=== PATIENT | male | born 1990 | race Native Hawaiian/Other Pacific Islander ===

== ENCOUNTER 2017-01-22 12:40 | Emergency (ER) | payer OTHER ==
[2017-01-22 12:55] VITALS: BP 125/63; PULSE 72; RESP 18; TEMP 98; O2SAT 99
--- NOTE | 2017-01-22 13:26 | ED PDOC ---
HPI: CCC, URI, Sore Throat Time Seen by Provider: 01/22/17 13:08 Chief Complaint (Nursing): ENT Problem History Per: Patient History/Exam Limitations: no limitations Onset/Duration Of Symptoms: Days (2 days) Current Symptoms Are (Timing): Still Present Location Of Pain: Throat Associated Symptoms: Neck Pain. denies: Fever, Nausea, Vomiting, Diarrhea Ear Symptoms: Bilateral: None Additional Complaint(s): 01/22/2017 Dali Vega is a 26 y/o male, who presents to the ED complaining of left sided neck pain for the past two days. Patient reports he swallowed a fish bone when the pain began. He states eating food yesterday and felt that the throat discomfort , but today the pain persisted. Patient denies any cough, fever, chills, abdominal pain, shortness of breath, or other complaints. Past Medical History Reviewed: Historical Data, Nursing Documentation, Vital Signs Vital Signs: Last Vital Signs Temp 98 F 01/22/17 12:52 Pulse 72 01/22/17 12:52 Resp 18 01/22/17 12:52 BP 125/63 01/22/17 12:52 Pulse Ox 99 01/22/17 13:31 - Family History Family History: States: No Known Family Hx - Home Medications Home Medications: Ambulatory Orders Medication Instructions Recorded Ibuprofen [Motrin] 600 mg PO Q8 PRN #12 tab 01/22/17 - Allergies Allergies/Adverse Reactions: Allergies Allergy/AdvReac Type Severity Reaction Status Date / Time Cephalosporins Allergy RASH Verified 01/22/17 12:51 lactose Allergy VOMITING Verified 01/22/17 12:51 Penicillins Allergy SWELLING Verified 01/22/17 12:51 Review of Systems Constitutional: Negative for: Fever ENT: Positive for: Throat Pain Cardiovascular: Negative for: Chest Pain Respiratory: Negative for: Cough, Shortness of Breath Gastrointestinal: Negative for: Abdominal Pain Neurological: Negative for: Headache Physical Exam - Reviewed Nursing Documentation Reviewed: Yes Vital Signs Reviewed: Yes - Physical Exam Appears: Positive for: Well, Non-toxic, No Acute Distress Head Exam: Positive for: ATRAUMATIC, NORMAL INSPECTION, NORMOCEPHALIC Skin: Positive for: Normal Color, Warm, DRY ENT: Positive for: Normal ENT Inspection. Negative for: Pharyngeal Erythema, Tonsillar Exudate, Tonsillar Swelling Neurologic/Psych: Positive for: Alert, Oriented - ECG O2 Sat by Pulse Oximetry: 99 (room air) Pulse Ox Interpretation: Normal Medical Decision Making Medical Decision Makin01/22/2017 Impression: 26 y/o with left sided neck pain after swallowing fish bone. clear on physical exam. Plan: -- Neck x-ray -- Lidocaine 2% -- Reassess and disposition Progress Notes: Scribe Attestation: Documented by Niya Boyd, acting as a scribe for Whitney Crooks PA-C Provider Scribe Attestation: All medical record entries made by the Scribe were at my direction and personally dictated by me. I have reviewed the chart and agree that the record accurately reflects my personal performance of the history, physical exam, medical decision making, and the department course for this patient. I have also personally directed, reviewed, and agree with the discharge instructions and disposition. Disposition - Clinical Impression Clinical Impression: Foreign body sensation in throat - Patient ED Disposition Is Patient to be Admitted: No - Disposition Referrals: Kevin Méndez MD [Staff Provider] - Disposition: Routine/Home Disposition Time: 14:23 Condition: FAIR Prescriptions: Ibuprofen [Motrin] 600 mg PO Q8 PRN #12 tab PRN Reason: Pain, Moderate (4-7) Instructions: Foreign Body in Pharynx (ED) Forms: [facility] (Djiboutian)
--- NOTE | 2017-01-22 14:23 | RAD ---
PROCEDURE: Radiographs of the neck (soft tissue). HISTORY: r/o foreign body COMPARISON: None. TECHNIQUE: Frontal and Lateral Radiographs of the neck, optimized for soft tissue visualization. FINDINGS: SOFT TISSUES: There is no prevertebral soft tissue thickening. No radiopaque foreign body seen. The nasopharyngeal and oropharyngeal airways, hypopharynx and visualized trachea are normal in appearance. The epiglottis is normal. CERVICAL SPINE: Grossly unremarkable. OTHER FINDINGS: None. IMPRESSION: No prevertebral soft tissue thickening or radiopaque foreign body P
== END 2017-01-22 14:54 | disposition home or self-care (01) ==
LOC: H.ER 12:40
DX: R09.89 Other specified symptoms and signs involving the circulatory and respiratory systems (principal)

== ENCOUNTER 2017-06-30 00:43 | Emergency (ER) | payer OTHER, BC ==
[2017-06-30 01:01] VITALS: TEMP 97.9; O2SAT 94
--- NOTE | 2017-06-30 01:47 | ED PDOC ---
HPI: Chest Pain Time Seen by Provider: 06/30/17 00:57 Chief Complaint (Nursing): Chest Pain Chief Complaint (Provider): Chest Pain History Per: Patient History/Exam Limitations: no limitations Onset/Duration Of Symptoms: Days (x5 days) Current Symptoms Are (Timing): Still Present Additional Complaint(s): 27 y/o male presents to the ED complaining of chest pain x 5days associated with cough, was there since weeks. Reports that when he coughs, he feels chest pain and when he takes deep breath and expands his ribcage feel chest pain as well. Pain is non exertional and non-radiating. Patient reports that he recently finished azithromycin and tamiflu. Denies any further medical complaints. Past Medical History Reviewed: Historical Data, Nursing Documentation, Vital Signs Vital Signs: Last Vital Signs Temp 97.9 F 06/30/17 00:57 Pulse 73 06/30/17 01:49 Resp 14 06/30/17 01:49 BP 139/81 06/30/17 01:49 Pulse Ox 94 L 06/30/17 01:53 - Medical History PMH: No Chronic Diseases - Surgical History Surgical History: No Surg Hx - Family History Family History: States: Unknown Family Hx - Home Medications Home Medications: Ambulatory Orders Medication Instructions Recorded Ibuprofen [Motrin] 600 mg PO Q8 PRN #12 tab 01/22/17 Ibuprofen [Motrin Tab] 600 mg PO Q6 #30 tab 06/30/17 - Allergies Allergies/Adverse Reactions: Allergies Allergy/AdvReac Type Severity Reaction Status Date / Time Cephalosporins Allergy RASH Verified 06/30/17 00:56 lactose Allergy VOMITING Verified 06/30/17 00:56 Penicillins Allergy SWELLING Verified 06/30/17 00:56 Review of Systems ROS Statement: Except As Marked, All Systems Reviewed And Found Negative (As per HPI, otherwise negative) Cardiovascular: Positive for: Chest Pain Respiratory: Positive for: Cough Physical Exam - Reviewed Nursing Documentation Reviewed: Yes Vital Signs Reviewed: Yes - Physical Exam Appears: Positive for: Well, Non-toxic, No Acute Distress Head Exam: Positive for: ATRAUMATIC, NORMAL INSPECTION, NORMOCEPHALIC Skin: Positive for: Normal Color, Warm, Dry Eye Exam: Positive for: EOMI, Normal appearance, PERRL ENT: Positive for: Normal ENT Inspection Neck: Positive for: Normal, Painless ROM, Supple Cardiovascular/Chest: Positive for: Regular Rate, Rhythm, Other (Tenderness to chest wall bilaterally). Negative for: Murmur Respiratory: Positive for: Normal Breath Sounds. Negative for: Accessory Muscle Use, Respiratory Distress Gastrointestinal/Abdominal: Positive for: Normal Exam, Bowel Sounds, Soft. Negative for: Tenderness Back: Positive for: Normal Inspection Extremity: Positive for: Normal ROM. Negative for: Deformity Neurologic/Psych: Positive for: Alert, Oriented (x3) - ECG O2 Sat by Pulse Oximetry: 94 (RA) Pulse Ox Interpretation: Normal Medical Decision Making Medical Decision Making: Time: 01:04 Initial Impression: Musculoskeletal chest pain Plan: Chest x-ray Ibuprofen 600mg PO 230AM Xray as read by me is negative. Patient feeling better, stable for outpatient followup. Return precautions discussed. Scribe Attestation: Documented by Libby Crooks acting as a scribe for Marlon Bell MD. Scribe Attestation: All medical record entries made by the Scribe were at my direction and personally dictated by me. I have reviewed the chart and agree that the record accurately reflects my personal performance of the history, physical exam, medical decision making, and the department course for this patient. I have also personally directed, reviewed, and agree with the discharge instructions and disposition. Disposition - Clinical Impression Clinical Impression: Chest wall pain - Disposition Referrals: Luis Olivas [Outside] Disposition: Routine/Home Disposition Time: 02:33 Condition: IMPROVED Prescriptions: Ibuprofen [Motrin Tab] 600 mg PO Q6 #30 tab Instructions: Chest Pain That Is Not Caused by the Heart (DC) Forms: [facility] (Slovak)
[2017-06-30 01:49] VITALS: BP 139/81; PULSE 73; RESP 14
--- NOTE | 2017-06-30 07:57 | RAD ---
HISTORY: cough, cp COMPARISON: No prior. TECHNIQUE: Chest PA and lateral FINDINGS: LUNGS: No active pulmonary disease. PLEURA: No significant pleural effusion identified. No pneumothorax apparent. CARDIOVASCULAR: Normal. OSSEOUS STRUCTURES: No significant abnormalities. VISUALIZED UPPER ABDOMEN: Normal. OTHER FINDINGS: None. IMPRESSION: No active disease.
== END 2017-06-30 02:50 | disposition home or self-care (01) ==
LOC: H.ER 00:43
DX: R07.89 Other chest pain (principal); Z88.0 Allergy status to penicillin

== ENCOUNTER 2017-09-20 02:24 | Emergency (ER) | payer BC, OTHER ==
[2017-09-20 02:46] VITALS: BMI 23.8
--- NOTE | 2017-09-20 03:00 | ED PDOC ---
HPI: General Adult Time Seen by Provider: 09/20/17 02:32 Chief Complaint (Nursing): ENT Problem Chief Complaint (Provider): ENT Problem History Per: Patient History/Exam Limitations: no limitations Onset/Duration Of Symptoms: Hrs (x2.5 hours) Have you had recent travel within the past 21 days to any of the following countries: [place], [place], [place] or [place]?: No Current Symptoms Are (Timing): Still Present Additional Complaint(s): 27 year old male presents to ED with complaints of a foreign body sensation in throat x2.5 hours and has no past medical history. Patient states he ate a flank steak at time of onset and believes there is a retained piece of steak in his throat on the right side. (-) trouble swallowing, issues handling his own secretions, or difficulty ingesting fluids. Patient notes that this has happened many times in the past. Chart review shows a similar episode in January 2017. Of note, patient is currently on Clarithromycin for a sinus infection. PCP: Kateryna Past Medical History Reviewed: Historical Data, Nursing Documentation, Vital Signs Vital Signs: Last Vital Signs Temp 98.3 F 09/20/17 04:55 Pulse 82 09/20/17 04:55 Resp 18 09/20/17 04:55 BP 118/82 09/20/17 04:55 Pulse Ox 98 09/20/17 04:55 - Medical History PMH: No Chronic Diseases - Surgical History Surgical History: No Surg Hx - Family History Family History: States: Unknown Family Hx - Living Arrangements Living Arrangements: With Friends/Others - Home Medications Home Medications: Ambulatory Orders Medication Instructions Recorded Ibuprofen [Motrin] 600 mg PO Q8 PRN #12 tab 01/22/17 Ibuprofen [Motrin Tab] 600 mg PO Q6 #30 tab 06/30/17 - Allergies Allergies/Adverse Reactions: Allergies Allergy/AdvReac Type Severity Reaction Status Date / Time Cephalosporins Allergy RASH Verified 06/30/17 00:56 lactose Allergy VOMITING Verified 06/30/17 00:56 Penicillins Allergy SWELLING Verified 06/30/17 00:56 Review of Systems ROS Statement: Except As Marked, All Systems Reviewed And Found Negative ENT: Positive for: Other ((+) foreign body sensation in throat. (-) trouble swallowing, issues handling his own secretions, issues ingesting fluids). Negative for: Throat Pain Physical Exam - Reviewed Nursing Documentation Reviewed: Yes Vital Signs Reviewed: Yes - Physical Exam Appears: Positive for: Non-toxic, No Acute Distress Skin: Positive for: Normal Color, Warm, Dry Eye Exam: Positive for: Normal appearance ENT: Positive for: Normal ENT Inspection, Pharynx Is (clear) Cardiovascular/Chest: Positive for: Regular Rate, Rhythm. Negative for: Murmur Respiratory: Positive for: Normal Breath Sounds. Negative for: Respiratory Distress Gastrointestinal/Abdominal: Positive for: Normal Exam, Soft. Negative for: Tenderness Neurologic/Psych: Positive for: Alert, Oriented. Negative for: Motor/Sensory Deficits - ECG O2 Sat by Pulse Oximetry: 97 (RA) Pulse Ox Interpretation: Normal Medical Decision Making Medical Decision Makin Initial impression: foreign body sensation in throat Initial plan: Patient offered CT to further exclude possibility of retained food bolus, to which patient is amenable. * CT NECK SOFT TISSUE 0424 CT FINDINGS: NASOPHARYNX: No acute abnormality of the adenoidal/nasopharyngeal tonsils identified. ORAL CAVITY: No acute abnormality of the tongue base identified. OROPHARYNX: No acute abnormality of the palatine tonsils identified. HYPOPHARYNX: No acute abnormality of the pyriform sinuses visualized. LARYNX: No acute abnormality of the vocal cords identified. No acute abnormality of the epiglottis identified. TRACHEA: Visualized portions of the trachea appear patent. RETROPHARYNGEAL SPACE: No evidence of prevertebral/retropharyngeal fluid or fluid collection. SUBMANDIBULAR/PAROTID GLANDS: No acute abnormality of the parotid or submandibular glands identified. THYROID: No acute abnormality of the thyroid gland identified. BONES/JOINTS: No acute fractures or other acute bony abnormality noted. SOFT TISSUES: No definite CT evidence of cellulitis on this unenhanced exam. No evidence of soft tissue gas. VASCULATURE: No acute abnormality of the major neck vessels seen. LYMPH NODES: No evidence of diffuse pathologic lymphadenopathy. SINUSES: Small mucus retention cysts in the right maxillary and left posterior ethmoid sinuses. ESOPHAGUS: No acute abnormality of the visualized portions of the upper esophagus. No CT evidence of esophageal perforation. No intraesophageal radioopaque foreign bodies. LUNG APICES: Lung apices appear clear. TRACHEA: Visualized portions of the trachea appear patent. IMPRESSION: - No evidence of significant acute process on this unenhanced exam. - See above for remaining findings. 0442 Patient was advised to follow up with a GI specialist for possible further work up. Referral to Dr. Hoffman provided. Patient is stable for discharge home. Dx: foreign body sensation Condition: stable Scribe Attestation: Documented by Alycia Charles acting as a scribe for Fili Godoy MD. Scribe Attestation: All medical record entries made by the Scribe were at my direction and personally dictated by me. I have reviewed the chart and agree that the record accurately reflects my personal performance of the history, physical exam, medical decision making, and the department course for this patient. I have also personally directed, reviewed, and agree with the discharge instructions and disposition. Disposition - Clinical Impression Clinical Impression: Foreign body sensation in throat - Disposition Referrals: David Hoffman MD [Staff Provider] - Disposition: Routine/Home Disposition Time: 04:42 Condition: STABLE Forms: [facility] (Marshallese)
--- NOTE | 2017-09-20 04:24 | CT ---
EXAM: CT Neck Without Intravenous Contrast EXAM DATE/TIME: 09/20/2017 2:51 AM CLINICAL HISTORY: 27 years old, male; Pain; Throat pain; Patient HX: Ate steak/rice 3.5 hours ago. Mid throat discomfort; Additional info: Possible fb TECHNIQUE: Axial computed tomography images of the neck without intravenous contrast. All CT scans at this facility use one or more dose reduction techniques, viz.: automated exposure control; ma/kV adjustment per patient size (including targeted exams where dose is matched to indication; i.e. head); or iterative reconstruction technique. Coronal and sagittal reformatted images were created and reviewed. COMPARISON: None is available. FINDINGS: NASOPHARYNX: No acute abnormality of the adenoidal/nasopharyngeal tonsils identified. ORAL CAVITY: No acute abnormality of the tongue base identified. OROPHARYNX: No acute abnormality of the palatine tonsils identified. HYPOPHARYNX: No acute abnormality of the pyriform sinuses visualized. LARYNX: No acute abnormality of the vocal cords identified. No acute abnormality of the epiglottis identified. TRACHEA: Visualized portions of the trachea appear patent. RETROPHARYNGEAL SPACE: No evidence of prevertebral/retropharyngeal fluid or fluid collection. SUBMANDIBULAR/PAROTID GLANDS: No acute abnormality of the parotid or submandibular glands identified. THYROID: No acute abnormality of the thyroid gland identified. BONES/JOINTS: No acute fractures or other acute bony abnormality noted. SOFT TISSUES: No definite CT evidence of cellulitis on this unenhanced exam. No evidence of soft tissue gas. VASCULATURE: No acute abnormality of the major neck vessels seen. LYMPH NODES: No evidence of diffuse pathologic lymphadenopathy. SINUSES: Small mucus retention cysts in the right maxillary and left posterior ethmoid sinuses. ESOPHAGUS: No acute abnormality of the visualized portions of the upper esophagus. No CT evidence of esophageal perforation. No intraesophageal radioopaque foreign bodies. LUNG APICES: Lung apices appear clear. TRACHEA: Visualized portions of the trachea appear patent. IMPRESSION: - No evidence of significant acute process on this unenhanced exam. - See above for remaining findings.
[2017-09-20 05:34] VITALS: BP 118/82; PULSE 82; RESP 18; TEMP 98.3
[2017-09-20 06:47] VITALS: O2SAT 97
== END 2017-09-20 02:55 | disposition home or self-care (01) ==
LOC: H.ER 02:24
DX: R09.89 Other specified symptoms and signs involving the circulatory and respiratory systems (principal); J32.9 Chronic sinusitis, unspecified; Z88.0 Allergy status to penicillin

== ENCOUNTER 2018-04-09 03:06 | Emergency (ER) | payer OTHER ==
[2018-04-09 03:06] VITALS: BMI 23.8
[2018-04-09 03:24] VITALS: PULSE 98; RESP 16; TEMP 98.3; O2SAT 100
[2018-04-09] MEDS ORDERED: Sodium Chloride 0.9% 1,000 ML IV STA (03:45)
[2018-04-09] MEDS ORDERED: Iohexol 240 (50 ml) PO ONE (03:45)
--- NOTE | 2018-04-09 03:49 | ED PDOC ---
HPI: Abdomen Chief Complaint (Provider): abdominal pain History Per: Patient History/Exam Limitations: no limitations Onset/Duration Of Symptoms: Hrs (20) Current Symptoms Are (Timing): Still Present Location Of Pain/Discomfort: Periumbilical Associated Symptoms: Nausea, Diarrhea Additional Complaint(s): 28 y/o male presents for evaluation of abdominal pain x 20 hours. Associated 12-13 episodes of watery diarrhea. Patient states he was evaluated at [facility] last night and prescribed Bentyl and Zofran; patient states pain has worsened since then, prompting ED visit. Denies fever, chest pain, shortness of breath, palpitations, urinary symptoms, recent travel, sick contacts. <Kalina Strickland - Last Filed: 04/09/18 05:42> <Marlon Bell - Last Filed: 04/09/18 06:51> Time Seen by Provider: 04/09/18 03:30 Chief Complaint (Nursing): Abdominal Pain Past Medical History Reviewed: Historical Data, Nursing Documentation, Vital Signs Vital Signs: Last Vital Signs Temp 98.3 F 04/09/18 03:21 Pulse 98 H 04/09/18 03:21 Resp 16 04/09/18 03:21 BP 124/66 04/09/18 03:21 Pulse Ox 100 04/09/18 03:21 - Medical History PMH: No Chronic Diseases - Surgical History Surgical History: No Surg Hx - Family History Family History: States: Unknown Family Hx <Kalina Strickland - Last Filed: 04/09/18 05:42> Vital Signs: Last Vital Signs Temp 98.3 F 04/09/18 03:21 Pulse 98 H 04/09/18 03:21 Resp 16 04/09/18 03:21 BP 124/66 04/09/18 03:21 Pulse Ox 100 04/09/18 05:43 <Marlon Bell - Last Filed: 04/09/18 06:51> - Home Medications Home Medications: Ambulatory Orders Medication Instructions Recorded Ibuprofen [Motrin] 600 mg PO Q8 PRN #12 tab 01/22/17 Ibuprofen [Motrin Tab] 600 mg PO Q6 #30 tab 06/30/17 - Allergies Allergies/Adverse Reactions: Allergies Allergy/AdvReac Type Severity Reaction Status Date / Time Cephalosporins Allergy RASH Verified 06/30/17 00:56 lactose Allergy VOMITING Verified 06/30/17 00:56 Penicillins Allergy SWELLING Verified 06/30/17 00:56 Review of Systems ROS Statement: Except As Marked, All Systems Reviewed And Found Negative Gastrointestinal: Positive for: Nausea, Abdominal Pain, Diarrhea <Kalina Strickland - Last Filed: 04/09/18 05:42> Physical Exam - Reviewed Nursing Documentation Reviewed: Yes Vital Signs Reviewed: Yes - Physical Exam Appears: Positive for: Well, Non-toxic, No Acute Distress Head Exam: Positive for: ATRAUMATIC, NORMAL INSPECTION, NORMOCEPHALIC Skin: Positive for: Normal Color Eye Exam: Positive for: Normal appearance ENT: Positive for: Normal ENT Inspection Cardiovascular/Chest: Positive for: Regular Rate, Rhythm Respiratory: Positive for: Normal Breath Sounds Gastrointestinal/Abdominal: Positive for: Bowel Sounds, Soft, Tenderness (periumbilical) Back: Positive for: Normal Inspection Extremity: Positive for: Normal ROM Neurologic/Psych: Positive for: Alert, Oriented (x3) <Kalina Strickland - Last Filed: 04/09/18 05:42> - Laboratory Results Result Diagrams: 04/09/18 04:11 04/09/18 04:11 - ECG O2 Sat by Pulse Oximetry: 100 - Progress ED Course And Treament: -cbc -cmp -lipase -urinalysis -IV toradol -IV NS bolus -ct abd/pelvis <Kalina Strickland - Last Filed: 04/09/18 05:42> - Laboratory Results Result Diagrams: 04/09/18 04:11 04/09/18 04:11 <Marlon Bell - Last Filed: 04/09/18 06:51> Medical Decision Making Medical Decision Makin Will endorse to Dr. Rodríguez pending CT result and re-eval <Marlon Bell - Last Filed: 04/09/18 06:51> Disposition - Disposition Disposition Time: 06:00 Patient Signed Over To: Marlon Bell Handoff Comments: pending CT, re-eval <Kalina Strickland - Last Filed: 04/09/18 05:42> - Disposition Disposition: Transfer of Care Disposition Time: 07:00 Patient Signed Over To: Amarilis Rodríguez <Marlon Bell - Last Filed: 04/09/18 06:51> - Clinical Impression Clinical Impression: Abdominal pain - Disposition Condition: STABLE
[2018-04-09] MEDS ORDERED: Iohexol 240 (50 ml) ONE (03:51)
[2018-04-09 04:15] LABS: BASO % 0.2 % (0.0-2.0); EOS # 0.2 K/uL (0.0-0.7); EOS % 2.3 % (0.0-4.0); HEMOGLOBIN 16.1 g/dL (12.0-18.0); LYMPH # 1.1 K/uL (1.0-4.3); LYMPH % 12.7 % (20.0-40.0); MEAN CELL VOLUME 93.8 fl (80.0-94.0); MEAN CORPUSCULAR HEMOGLOBIN 30.9 pg (27.0-31.0); MEAN CORPUSCULAR HGB CONC 32.9 g/dL (33.0-37.0); MEAN PLATELET VOLUME 7.1 fl (7.2-11.7); MONO # 0.7 K/uL (0.0-0.8); NEUT # 6.6 K/uL (1.8-7.0); NEUT % 76.8 % (50.0-75.0); NRBC % 0.1 % (0.0-0.0); RBC 5.22 Mil/uL (4.40-5.90); RED CELL DISTRIBUTION WIDTH 13.1 % (11.5-14.5); WHITE BLOOD COUNT 8.6 K/uL (4.8-10.8)
[2018-04-09 04:25] LABS: SQUAMOUS EPITHIAL < 1 /hpf (0-5); URINE BILIRUBIN NEGATIVE (NEGATIVE); URINE BLOOD SMALL (NEGATIVE); URINE CLARITY CLEAR (Clear); URINE COLOR YELLOW (YELLOW); URINE GLUCOSE (UA) NEG (NEGATIVE); URINE LEUKOCYTE ESTERASE NEG Leu/uL (Negative); URINE PROTEIN NEGATIVE (NEGATIVE); URINE UROBILINOGEN 0.2-1.0 mg/dL (0.2-1.0)
[2018-04-09 04:29] LABS: ALB/GLOB RATIO 1.3 (1.0-2.1); ALBUMIN 4.8 g/dL (3.5-5.0); ALT/SGPT 43 U/L (21-72); AST/SGOT 32 U/L (17-59); BLOOD UREA NITROGEN 11 mg/dl (9-20); CALCIUM 9.9 mg/dL (8.4-10.2); GFR NON-AFRICAN AMERICAN > 60; LIPASE 153 U/L (23-300)
[2018-04-09] MEDS ORDERED: Sodium Chloride 0.9% 50 ML IV ONE (06:31)
[2018-04-09] MEDS ORDERED: Iohexol 300 100 ML IJ ONE (06:31)
[2018-04-09 07:38] VITALS: BP 128/70
--- NOTE | 2018-04-09 13:16 | CT ---
Date of service: 04/09/2018 PROCEDURE: CT Abdomen and Pelvis with contrast HISTORY: abdominal pain, diarrhea COMPARISON: None. TECHNIQUE: Contrast dose: 90 mL Omnipaque 300 Radiation dose: Total exam DLP = 300.68 mGy-cm. This CT exam was performed using one or more of the following dose reduction techniques: Automated exposure control, adjustment of the mA and/or kV according to patient size, and/or use of iterative reconstruction technique. FINDINGS: LOWER THORAX: Unremarkable. LIVER: Unremarkable. No gross lesion or ductal dilatation. GALLBLADDER AND BILE DUCTS: Unremarkable. PANCREAS: Unremarkable. No gross lesion or ductal dilatation. SPLEEN: Unremarkable. ADRENALS: Unremarkable. No mass. KIDNEYS AND URETERS: Unremarkable. No hydronephrosis. No solid mass. VASCULATURE: Unremarkable. No aortic aneurysm. No aortic atherosclerotic calcification or mural plaque present. BOWEL: No bowel obstruction. No abnormal bowel loops are identified. APPENDIX: Normal appendix. PERITONEUM: Unremarkable. No free fluid. No free air. LYMPH NODES: Unremarkable. No enlarged lymph nodes. BLADDER: Unremarkable. REPRODUCTIVE: Normal prostate BONES: No acute fracture. OTHER FINDINGS: None. IMPRESSION: Unremarkable examination. The preliminary findings for this examination were reported by [facility] at 7:05 a.m. on 04/09/2018. There is discordance of this report with the preliminary findings. There is not felt to be evidence of enteritis on the basis of this examination.
== END 2018-04-09 07:38 | disposition home or self-care (01) ==
LOC: H.ER 03:06
DX: R10.9 Unspecified abdominal pain (principal); R19.7 Diarrhea, unspecified; R11.0 Nausea; Z88.0 Allergy status to penicillin
CPT/HCPCS: 74177; 80053; 81003; 83690; 85025; 96374; 99282; J1885; J7030; Q9966; Q9967